=== PATIENT | male | born 1965 | race Caucasian/White ===

== ENCOUNTER 2018-08-23 18:12 | Emergency (ER) | payer OTHER ==
[~2018-08-23] VITALS: Ht 165.1 cm; Wt 65.9 kg
[2018-08-23] MEDS ORDERED: CALC25 PO (18:45)
[2018-08-23] MEDS ORDERED: LISI-660 PO (18:45)
[2018-08-23] MEDS ORDERED: FURO40 PO (18:45)
[2018-08-23] MEDS ORDERED: VITAD50000 PO (18:45)
[2018-08-23] MEDS ORDERED: INSU100V SQ (18:45)
[2018-08-23] MEDS ORDERED: METO50 PO (18:45)
[2018-08-23] MEDS ORDERED: TAMS-1 PO (18:45)
[2018-08-23] MEDS ORDERED: INSLAN SQ (18:45)
[2018-08-23] MEDS ORDERED: ATOR20TA86 PO (18:45)
[2018-08-23] MEDS ORDERED: CLON0.1T PO (18:45)
[2018-08-23] MEDS ORDERED: CEPHALEXIN MONOHYDRATE 500 MG CAPSULE PO ONE (19:15)
[2018-08-23] MEDS ORDERED: LIDOCAINE 1% 10 ML VIAL INJ ONE (19:15)
[2018-08-23] MEDS ORDERED: IBUPROFEN 800 MG TABLET PO ONE (19:15)
[2018-08-23] MEDS ORDERED: POVIDONE-IODINE 10% 15 ML SOLUTION UD TP ONE (19:15)
[2018-08-23 20:07] VITALS: BP 122/78
== END 2018-08-23 20:15 | disposition home or self-care (01) ==
LOC: EMS 18:12
DX: L03.031 Cellulitis of right toe (principal)
CPT/HCPCS: 10060; 99283; J3490

== ENCOUNTER 2019-03-09 17:43 | Emergency (ER) | payer OTHER ==
[~2019-03-09] VITALS: Ht 157.5 cm; Wt 63.6 kg
[2019-03-09 18:30] VITALS: BP 126/79
== END 2019-03-09 18:45 | disposition home or self-care (01) ==
LOC: EMS 17:44
DX: K08.89 Other specified disorders of teeth and supporting structures (principal); R03.0 Elevated blood-pressure reading, without diagnosis of hypertension

== ENCOUNTER 2020-05-02 08:49 | Emergency (ER) | payer OTHER ==
[~2020-05-02] VITALS: Ht 162.6 cm; Wt 71.8 kg
[2020-05-02 10:25] VITALS: BP 120/80
== END 2020-05-02 10:45 | disposition home or self-care (01) ==
LOC: EMS 08:54
DX: U07.1 COVID-19 (principal); J40 Bronchitis, not specified as acute or chronic
CPT/HCPCS: 71045; 99284; U0003; 99283

== ENCOUNTER 2021-04-06 15:25 | Emergency (ER) | payer OTHER ==
[~2021-04-06] VITALS: Ht 157.5 cm; Wt 68.2 kg
[2021-04-06 15:38] VITALS: BP 129/74
== END 2021-04-06 16:11 | disposition home or self-care (01) ==
LOC: EMS 15:26
DX: R05.9 Cough, unspecified (principal); Z20.822 Contact with and (suspected) exposure to COVID-19
CPT/HCPCS: 99283; U0003

== ENCOUNTER 2023-04-02 17:26 | Emergency (ER) | payer OTHER ==
[~2023-04-02] VITALS: Ht 167.6 cm; Wt 63.6 kg
[2023-04-02 17:31] VITALS: TEMP 98.4
[2023-04-02] MEDS ORDERED: IBUP-45 PO (17:31)
[2023-04-02 17:35] LABS: COVID AG,FIA SOURCE NASAL SWAB
[2023-04-02 18:11] LABS: SARS-COV2 (COVID) ANTIGEN,FIA Positive (Negative)
[2023-04-02 18:23] LABS: INFLUENZA TYPE A NEGATIVE FOR TYPE A (NEGATIVE); INFLUENZA TYPE B NEGATIVE FOR TYPE B (NEGATIVE)
[2023-04-02 20:30] VITALS: BP 126/78; PULSE 90; RESP 16
[2023-04-02] MEDS ORDERED: KETOROLAC TROMETHAMINE 60 MG/2 ML VIAL IM ONE (21:00)
== END 2023-04-02 21:27 | disposition home or self-care (01) ==
LOC: EMS 17:27
DX: U07.1 COVID-19 (principal); Z98.890 Other specified postprocedural states
CPT/HCPCS: 99283; 87426; 87804; 96372; J1885

== ENCOUNTER 2023-05-28 20:37 | Emergency (ER) | payer OTHER ==
[~2023-05-28] VITALS: Ht 157.5 cm; Wt 68.2 kg
[~2023-05-28 20:37] MED LIST: IBUP-45 PO
[2023-05-28 22:18] LABS: INFLUENZA A-RTPCR,COMBO NEGATIVE (NEGATIVE); INFLUENZA B-RTPCR,COMBO NEGATIVE (NEGATIVE); RESPIRATORY SYNCYTIAL VRS-PCR NEGATIVE (NEGATIVE); SARS COVID19 RTPCR, COMBO NEGATIVE (NEGATIVE)
[2023-05-28 22:45] VITALS: BP 132/76; PULSE 71; RESP 18; TEMP 97.3
[2023-05-28] MEDS: ACETAMINOPHEN 500 MG TABLET PO ONE (23:16)
[2023-05-28] MEDS: IBUPROFEN 600 MG TABLET PO ONE (23:16)
== END 2023-05-28 23:05 | disposition home or self-care (01) ==
LOC: EMS 20:38
DX: J06.9 Acute upper respiratory infection, unspecified (principal); Z98.890 Other specified postprocedural states; Z20.822 Contact with and (suspected) exposure to COVID-19
CPT/HCPCS: 99283; 0241U; 87430

== ENCOUNTER 2023-12-21 10:28 | Emergency (ER) | payer OTHER ==
[~2023-12-21] VITALS: Ht 157.5 cm; Wt 70.5 kg
[2023-12-21 10:36] VITALS: BP 134/84; PULSE 74; RESP 18; TEMP 98; O2SAT 99
[2023-12-21 10:45] LABS: COVID AG,FIA SOURCE NASAL SWAB
[2023-12-21 11:03] LABS: SARS-COV2 (COVID) ANTIGEN,FIA Negative (Negative)
== END 2023-12-21 11:33 | disposition home or self-care (01) ==
LOC: EMS 10:28
DX: R05.9 Cough, unspecified (principal); R50.9 Fever, unspecified; Z20.822 Contact with and (suspected) exposure to COVID-19
CPT/HCPCS: 99283

== ENCOUNTER 2024-05-16 11:50 | Emergency (ER) | payer OTHER ==
[~2024-05-16] VITALS: Ht 165.1 cm; Wt 65.0 kg
[2024-05-16 12:08] VITALS: TEMP 98.6
[2024-05-16] MEDS ORDERED: IOHEXOL 350 MG/ML 100 ML VIAL ONE (15:27)
[2024-05-16] MEDS ORDERED: SODIUM CHLORIDE 0.9% 100 ML ONE (15:27)
[2024-05-16] MEDS ORDERED: 0.9% SODIUM CHLORIDE 10 ML SYRINGE IVP ONE (15:28)
[2024-05-16] MEDS: SODIUM CHLORIDE 0.9% 1,000 ML IV ONE (15:29)
[2024-05-16] MEDS: IOHEXOL 9 MG/ML 500 ML BOTTLE PO ONE (15:29)
[2024-05-16] MEDS: ONDANSETRON HCL 4 MG/2 ML VIAL IVP ONE (15:30)
[2024-05-16] MEDS: MORPHINE SULFATE 4 MG/ML SYRINGE IVP ONE (15:30)
[2024-05-16 15:32] LABS: BASOPHILS % (AUTO) 0.3 % (0.0-2.0); EOSINOPHILS % (AUTO) 1.8 % (1.0-6.0); HEMATOCRIT 44.6 % (41-53); HEMOGLOBIN 14.9 g/dL (13.5-17.5); LYMPHOCYTES # (AUTO) 1.7 K/uL (1.0-4.8); LYMPHOCYTES % (AUTO) 32.1 % (22.0-44.0); MEAN CORPUSCULAR HEMOGLOBIN 29.6 pg (26.0-34.0); MEAN CORPUSCULAR HGB CONC 33.4 G/dL (31.0-37.0); MEAN CORPUSCULAR VOLUME 89 fL (80-100); MONOCYTES # (AUTO) 0.4 K/uL (0.1-1.0); MONOCYTES % (AUTO) 8.4 % (2.0-9.0); NEUTROPHILS % (AUTO) 57.4 % (40.0-70.0); PLATELET COUNT (AUTO) 171 K/uL (150-450); RED BLOOD CELL COUNT(AUTO) 5.02 MIL/uL (4.50-5.90); WHITE BLOOD COUNT (AUTO) 5.3 K/uL (4.5-11.0)
[2024-05-16 15:46] LABS: ANION GAP 4 mmol/L (8-16); CALCIUM, TOTAL 8.6 mg/dL (8.8-10.5); CARBON DIOXIDE 31 mmol/L (22-29); CHLORIDE 107 mmol/L (98-107); CREATININE 0.85 mg/dL (0.60-1.30); GLOMERULAR FILTR. RATE CALC > 60 mL/min (>60); GLUCOSE,RANDOM 95 mg/dL (70-110); POTASSIUM 4.3 mmol/L (3.5-5.1); SODIUM SERUM 142 mmol/L (136-145); UREA NITROGEN, BLOOD 17 mg/dL (7-18)
[2024-05-16 15:53] LABS: ALANINE AMINOTRANSFERASE 40 U/L (12-78); ALBUMIN 3.6 g/dL (3.4-5.0); ALKALINE PHOSPHATASE 61 U/L (46-116); ASPARTATE AMINOTRANSFERASE 19 U/L (15-37); BILIRUBIN,TOTAL 0.4 mg/dL (0.1-1.0); LIPASE 32 U/L (16-77)
[2024-05-16 20:00] VITALS: BP 132/71; PULSE 73; RESP 15; O2SAT 98
[2024-05-16 20:56] LABS: APPEARANCE,URINE CLEAR (CLEAR); BILIRUBIN,URINE NEGATIVE (NEGATIVE); COLOR,URINE COLORLESS (YELLOW); GLUCOSE, URINE (UA) NEGATIVE (NEGATIVE); KETONES,URINE NEGATIVE (NEGATIVE); LEUKOCYTE ESTERASE ,URINE NEGATIVE (NEGATIVE); NITRATE,URINE NEGATIVE (NEGATIVE); OCCULT BLOOD,URINE NEGATIVE (NEGATIVE); PROTEIN,URINE NEGATIVE (NEGATIVE); UROBILINOGEN,URINE <=1.0 mg/dL (<=1.0)
[2024-05-16 20:59] LABS: BACTERIA,URINE Rare /HPF (None Seen); RBC,URINE 0-2 /HPF (0-2); SQUAMOUS EPITHELIAL CELL,UR Rare /LPF (None Seen); WBC,URINE 0-2 /HPF (0-5)
[2024-05-16] MEDS ORDERED: ACET-66 PO (21:05)
== END 2024-05-16 21:15 | disposition home or self-care (01) ==
LOC: EMS 11:51
DX: R10.32 Left lower quadrant pain (principal); Z98.890 Other specified postprocedural states
CPT/HCPCS: 99285; 74177; 96374; 96361; 96375; 80048; 80076; 81001; 83690; 85025; 36415; Q9967 ×2; J2270; J2405; J7030; J7050